=== PATIENT | male | born 1960 | race Caucasian/White ===

== ENCOUNTER 2017-02-04 08:04 | Outpatient (CLI) | payer MEDICARE, MEDICAID ==
[~2017-02-04] VITALS: Ht 188 cm; Wt 111.4 kg
--- NOTE | ~2017-02-04 | PUL ---
PATIENT'S NAME: TIFF VIGIL [facility] AGE: 56 Y [address] ROOM: [place] [address] LOCATION: GCAT ADMIT DATE: 02/04/2017 Pulmonary DISCHARGE DATE: 02/04/2017 FAMILY PHYSICIAN: Delicia Ferrell APRN ATTENDING PHYSICIAN: Breann Vizcarra NAME OF PROCEDURE: Bedside Pulmonary Function Test DATE OF PROCEDURE: February 04, 2017 TECH: LINDA Grier REASON FOR EXAM: Pre-surgical evaluation RESULTS: Spirometry does not demonstrate significant airflow obstruction. There is borderline improvement in the FEV1 post bronchodilator. MD MARIELA STORY/ /[id number] dtt: 02/18/17 0948 , Deonte Mena dtd: 02/08/17 1421
--- NOTE | ~2017-02-04 | ENPV ---
Carotid Duplex Study Demographics Patient Name TIFF VIGIL Date of Study 02/04/2017 Patient Number [id number] Gender Male Date of 1960 Age 56 Visit Number [id number] Height 74.02 Accession Number [id number] Weight 245.6 Referring Kingsley Ramires DO Interpreting Huber Aldana MD Physician Physician Physician Ordering Kingsley Ramires Hris Coordinator Physician DO Transport Driver Alia Woods, RT,RVT,RDCS Conclusions Summary Bilateral <50% stenosis of the ICA Procedure Type of Study: Cerebral:Carotid, Carotid Doppler Bilateral. Appropriate Use Criteria:9 Allergies - Insulin. Patient Status:Routine. Study Location:Inpatient Portable. Technical Quality:Adequate visualization. - Preliminary reported to:Rosey Finley APRN. Risk Factors - The patient's risk factor(s) include: renal failure , diabetes mellitus, obesity and arterial hypertension. - The patient's last creatinine was 2.4 mg/dl. Velocities are measured in cm/s ; Diameters are measured in cm Carotid Right Measurements Carotid Left Measurements + +--------+--------+ + + + +--------+- -------+ + + !Location !PSV !EDV !Angle !%Stenosis ! !Location !PSV !E DV !Angle !%Stenosis ! + +--------+--------+ + + + +--------+- -------+ + + !Prox CCA !107 ! !56 !1-39% ! !Prox CCA !84 !9 !60 !1-39% ! + +--------+--------+ + + + +--------+- -------+ + + !Dist CCA !55 ! !56 !1-39% ! !Dist CCA !62 !1 1 !60 !1-39% ! + +--------+--------+ + + + +--------+- -------+ + + !Prox ICA !34 !10 !60 !1-39% ! !Prox ICA !36 !1 3 !60 !1-39% ! + +--------+--------+ + + + +--------+- -------+ + + !Mid ICA !70 !21 !60 !1-39% ! !Mid ICA !61 !2 1 !60 !1-39% ! + +--------+--------+ + + + +--------+- -------+ + + !Dist ICA !84 !30 !60 !1-39% ! !Dist ICA !100 !3 2 !60 !1-39% ! + +--------+--------+ + + + +--------+- -------+ + + !Prox ECA !47 ! !14 ! ! !Prox ECA !74 ! !60 ! ! + +--------+--------+ + + + +--------+- -------+ + + !Vertebral !41 ! !60 ! ! !Vertebral !64 ! !60 ! ! + +--------+--------+ + + + +--------+- -------+ + + - There is antegrade vertebral flow noted on the right side. - There is antegrade verte bral flow noted on the left side. - Add'l Measurements:Subclavian PRV 177 cm/sICAPSV/CCAPSV - Add'l Measurements:Subcl jesse PRV 157 cm/sICAPSV/CCAPSV 0.79. 1.19.ICAEDV/CCAEDV 3.62. Signature dtt: NORIS ADAIR dtd: 02/04/17 1408 Physician Self Edit
--- NOTE | ~2017-02-04 | CATH ---
Cardiac Diagnostic + PCI Report Demographics Patient Name YARITZA Cool Gender Male Date of 1960 Age 56 year(s) Patient Number [id number] Date of Study 02/04/2017 Visit Number [id number] Room Number G63[address] [place] [id number] Ht 188 cm Wt 111.4 kg Referring Ghassan Nesbitt Primary Physician Physician PHILLY Will Performing [facility] Crain Secondary Physician Physician Diagnostic [facility] Crain Assisting Physician Physician Interventional [facility] Physician Special Machine Stitcher Physician Findings and Conclusions Diagnostic Findings and Conclusion Critical, heavily calcified diffuse mid LAD lesion 95% Moderate CAD in OM and ostial PLV branch Small upper branch of PLV has focal 90% stenosis Diagnostic Recommendations Attempt PCI of mLAD Limited diagnostic views for coronary angiogram, given eGFR in 20's. Interventional Findings and Conclusion s/p PTCA MID lad, the more mid to distal LAD lesion was not well visualized in the caudal views on diagnostic angiogram, however, upon wiring the LAD and when cranial images were reviewed, severe, calcific disease noted in the entire mid LAD, long diffuse lesion Great difficulty advancing balloon due to calcification Due to renal insufficiency and unavailability of atherectomy devices here, I will discuss with CTS for possible CABG. Interventional Recommendations I reviewed images with Dr. Wynn, plan is off pump, MOORE to LAD/diag. Pt has appointment on February [address] Wynn at [facility] clinic. Carotids and PFT's will be done prior to dc. asa 81 mgs daily, lipitor 20 mgs daily, LDL in 30's, sl ntg prn chest discomfort. continue bb. Patient will be discharged later today. Patient has been instructed to not lift anything more than 5 pounds for 1 week. Aggressive risk factor management. Aggressive medical therapy for coronary artery disease. Cardiac diet . Optimization of medical therapy as an outpatient. Thanks Dr. Wynn. Procedure Description The patient was brought to the diagnostic cardiac catheterization-EP laboratory in the fasting, non-sedated state. Informed consent was obtained in the written and verbal form after the risks and benefits were explained. The patient had no further questions and agreed to proceed. The planned puncture-incision site(s) were shaved and prepped with ChloraPrep and draped in the usual sterile manner. Conscious sedation, supplemental oxygen, and pain control medications were delivered by a registered nurse under physician guidance. Surface ECG rhythm, blood pressure measurement, and pulse oximetry were monitored throughout the procedure. Arterial access. The access site was infiltrated with lidocaine. The vessel was entered with the Seldinger technique. A sheath was advanced into the vessel and used for catheter placement. Selective left coronary angiography. A catheter was advanced into the left coronary vessel ostium under Fluoroscopic guidance. Contrast was injected by hand. Images were obtained in multiple projections. Selective right coronary angiography. A catheter was advanced into the right coronary vessel ostium under fluoroscopic guidance. Contrast was injected by hand. Images were obtained in multiple projections. Angioplasty: A guiding catheter was used to intubate the vessel. A 0.14 wire was used to cross the lesion. A balloon was positioned across the lesion and inflated. Post placement angiograms were performed. Left heart catheterization. A catheter was advanced across the aortic valve to the left ventricle under fluoroscopic guidance. Resting hemodynamics were obtained. Arterial artery hemostasis was achieved. The patient was transferred to a regular nursing floor via cart accompanied by a nurse. The patient left the laboratory in stable condition. Diagnostic Cath Status: Elective Interventional Cath Status: Urgent Procedure Procedure Type Diagnostic procedure:Angiography:, Coronary Angios w/[facility] PCI procedure:PTCA:, LAD The procedure was explained in detail to the patient. Risks, complications and alternative treatments were reviewed. Written consent was obtained. Medications Reviewed with Patient prior to Procedure. Angiographic Findings Dominance: Right Cardiac Arteries and Lesion Findings LMCA: Normal (0% Stenosis).wnl LAD: Abnormal. clacified prox mid-95% distal 90% Diag 30% Lesion on Mid LAD: Mid subsection.95% stenosis reduced to 95%. Pre procedure CAMRON III flow was noted. Post Procedure CAMRON III flow was present. The guidewire cross was successful.A good run off was present.The lesion was diagnosed as a high risk lesion.Culprit lesion. Devices used - Runthrough NS .014 x 180. Number of passes: 1. - Emerge Balloon 2.75 x 15. 1 inflation(s) to a max pressure of: 6 timothy. Lesion on Prox LAD: Proximal subsection.30% stenosis . Lesion on 1st Diag: Proximal subsection.30% stenosis . Lesion on Dist LAD: Distal subsection.90% stenosis . LCx: Abnormal.circ wnl OM 1 50% Lesion on 1st Ob Shaila: Proximal subsection.50% stenosis . RCA: Abnormal.mid 30% distal 30% PL 50% ostial small upper branch pl 90% PDA 20% Lesion on Mid RCA: Mid subsection.30% stenosis . Lesion on Dist RCA: Distal subsection.30% stenosis . Lesion on 1st RPL: Ostial.50% stenosis . Lesion on 2nd RPL: Proximal subsection.90% stenosis . Lesion on R PDA: Proximal subsection.20% stenosis . Coronary Tree Procedure Data Procedure Date Date: 02/04/2017Start: 10:10 AMEnd: 10:47 AM Entry Locations - Retrograde Percutaneous access was performed through the Right Radial artery (Primary location). A 6 Fr sheath was inserted. Hemostasis was successfully obtained using Mechanical Compression. Closure Comments: r band with 15 cc air deployed by Wale. Procedure Medications Order and Administration + + + + + !Time !Medication !Dosage !Route ! + + + + + !02/04/2017 10:08 !Fentanyl !50 mcg !I.V. ! !AM ! ! ! ! + + + + + !02/04/2017 10:08 !Versed !1 mg !I.V. ! !AM ! ! ! ! + + + + + !02/04/2017 10:14 !Radial Verapamil !2.5 mg !I.A. ! !AM ! ! ! ! + + + + + !02/04/2017 10:15 !Heparin (ACC_3) !5000 units !I.V. ! !AM ! ! ! ! + + + + + !02/04/2017 10:26 !Angiomax (Bivalirudin) !82.5 mg !I.V. bolus ! !AM !(ACC_5) ! ! ! + + + + + !02/04/2017 10:27 !Angiomax (Bivalirudin) !1.75 mg/kg/hr!I.V. drip ! !AM !(ACC_5) ! ! ! + + + + + !02/04/2017 10:42 !Angiomax (Bivalirudin) ! !I.V. drip ! !AM !(ACC_5) ! ! ! + + + + + Devices Used - A5 Fr. BS JR 4 Diag. Catheterwas used for:Right coronary angiography. - A5 Fr. BS JL 3.5 Diag. Catheterwas used for:Left coronary angiography. - A6 Fr. EBU 3.5 Guide Catheterwas used for:LAD Intervention. - A5 Fr. BS Angled Pigtail Diag. Catheterwas used for:LV Pressures. Contrast Material - Isovue 12593 ml Fluoroscopy Time: Diagnostic: 7:54 minutes. Total: 7:54 minutes. Fluoroscopy Dose: Diagnostic: 1253 mGy. Total: 1253 mGy. Estimated Blood Loss: 10 ml. Additional [facility] PCI Information PCI Indication:PCI for high risk Non-STEMI or unstable angina. Medical History Performed Procedures and Imaging Results - No [facility] stress or imaging studies were performed. Allergies - Insulin. Risk Factors The patient risk factors include:obesity, hypertension, diabetes mellitus, last creatinine: 2.4 mg/dl, creatinine clearance: 54.8 ml/min and renal failure. Admission Data Admission Date: 02/04/2017 Admission Time: 08:04 AM Admit Source: Other Insurance Payors: Medicare. Admission Medications + +------+------+ + + + + !Medication !Dosage!Times !Last !Last !Administered !Comments ! ! ! !Per !Delivery !Delivery ! ! ! ! ! !Day !Date !Time ! ! ! + +------+------+ + + + + !Beta ! ! ! ! !Yes ! ! !Susi ! ! ! ! ! ! ! !(any) ! ! ! ! ! ! ! + +------+------+ + + + + Clinical Evaluation Leading to Procedure - The patient's CAD presentation was assessed as: Symptom unlikely to be ischemic. - There were no anginal symptoms. Anti-anginal medications were prescribed during the past two weeks. The medications are: Beta Blockers and Ca channel Blockers. - The patient has been in a state of heart failure within the past two weeks. - The patient's heart failure status was assessed as NYHA Class II, with CHF symptoms of MARTINEZ. Hemodynamics Condition: Rest O2 Consumption: Estimated: 275.62Heart Rate: 64 bpm Pressures (mmHg) +-----+ + !Site !Pressure ! +-----+ + !AO !110/60 (83) ! +-----+ + !AO !109/66 (85) ! +-----+ + !LV !115/6 ,16 ! +-----+ + !LV !101/5 ,50 ! +-----+ + !AO !123/68 (91) ! +-----+ + !LV !101/5 ,34 ! +-----+ + Valve Gradients and Areas + +---------+---------+---------+ +---------+ + !Valve !Peak !Mean !Area !Index !Flow !Source ! + +---------+---------+---------+ +---------+ + !Aortic !0 !0 ! ! ! ! ! + +---------+---------+---------+ +---------+ + !Aortic !0 !0 ! ! ! ! ! + +---------+---------+---------+ +---------+ + Shunts Oxygen Values O2 Capacity 138.72 O2 Consumption 275.62 Signatures dtt: GILBERT MOORE dtd: 02/04/17 1010 Physician Self Edit
[~2017-02-04 08:04] MED LIST: CERTAVITE SR-A1 EACH PO; COLCHICINE0.6 M1 PO; COREG12.5 MG PO; NORVASC5 MG PO; PROBENECID-COL1 EACH PO; PROBENECID500 MG PO; ULORIC80 MG PO; VITAMIN D5000 UNIT PO
[2017-02-04 09:01] LABS: BASOPHIL % 0.3 %; EOSINOPHIL # 0.1 K/uL (0.0-0.5); EOSINOPHIL % 1.6 %; HEMOGLOBIN 10.2 g/dL (12.0-17.0); IMMATURE GRANULOCYTE # 0.1 K/uL (0.0-0.3); IMMATURE GRANULOCYTE % 1.6 %; LYMPHOCYTE # 1.2 K/uL (0.8-4.0); MCH 31.9 pg (27.0-34.0); MCHC 35.2 gm/dL (32.0-36.5); MCV 90.6 fl (83.0-98.0); MONOCYTE # 0.4 K/uL (0.0-1.0); MONOCYTE % 9.7 %; MPV 10.1 fl (9.4-12.4); NEUTROPHIL # (ANC) 2.1 K/uL (1.4-9.0); NEUTROPHIL % 54.8 %; NRBC % 0 /100WBC (0-0.00); PLATELET COUNT 98 K/uL (150-450); WBC 3.8 K/uL (4.0-11.0)
[2017-02-04 09:10] LABS: INR - (THERAPEUTIC) 1.08 (0.92-1.07); PROTIME 11.3 SECONDS (9.8-11.4); PTT 31 SECONDS (25-32)
[2017-02-04 09:17] LABS: ALBUMIN 4.2 gm/dL (3.5-5.0); ANION GAP 15.3 (10.0-19.0); CALCIUM 8.6 mg/dL (8.5-10.5); CREATININE 2.4 mg/dL (0.6-1.3); POTASSIUM 5.3 mMol/L (3.7-5.1); TOTAL BILIRUBIN 1.5 mg/dL (0.0-1.5); TOTAL PROTEIN 7.2 g/dL (6.0-8.4)
[2017-02-04] MEDS ORDERED: ASPIRIN LO-DOSE81 MG PO (12:01)
[2017-02-04] MEDS ORDERED: LIPITOR20 M1 PO (12:02)
[2017-02-04] MEDS ORDERED: NITROSTAT 0.40.4 MG SL (12:02)
== END 2017-02-04 15:47 | disposition disaster alternative care site (69) ==
LOC: GCAT 08:04 → GPCU 08:04 → GCAT 15:47
PROVIDERS: Internal Medicine Interventional Cardiology
PROC: 4A023N7 Measurement of Cardiac Sampling and Pressure, Left Heart, Percutaneous Approach (ICD-10-PCS; principal; 2017-02-04)
PROC: B216YZZ Fluoroscopy of Right and Left Heart using Other Contrast (ICD-10-PCS; 2017-02-04)
DX: Z01.818 Encounter for other preprocedural examination (principal); I25.10 Atherosclerotic heart disease of native coronary artery without angina pectoris; I65.23 Occlusion and stenosis of bilateral carotid arteries
CPT/HCPCS: C1725; C1769; C1887; J0583; J1644; J2001; J2250; J3010; J7030; J7060

== ENCOUNTER 2017-02-08 11:48 | Inpatient (IN) | payer MEDICARE, MEDICAID ==
[~2017-02-08] VITALS: Ht 180.3 cm; Wt 118.9 kg
--- NOTE | ~2017-02-08 | OR ---
PATIENT'S NAME: TIFF VERA [facility] AGE: 56 Y [address] ROOM: [place] [address] LOCATION: GPCU ADMIT DATE: 02/09/2017 OR/Procedure Report DISCHARGE DATE: FAMILY PHYSICIAN: MELANIE RUIZ APRN ATTENDING PHYSICIAN: Fransisco Wynn SURGEON: Fransisco Wynn DO CLIMATE CHANGE ANALYST: DATE OF PROCEDURE: 02/09/2017 PREOPERATIVE DIAGNOSES: 1. Multivessel coronary artery disease with failed attempt at LAD PTCI. 2. Chronic kidney disease, stage IV. 3. Obesity. 4. Diabetes. SECONDARY DIAGNOSIS: Chronic cognitive impairment. POSTOPERATIVE DIAGNOSES: 1. Multivessel coronary artery disease with failed attempt at LAD PTCI. 2. Chronic kidney disease, stage IV. 3. Obesity. 4. Diabetes. PROCEDURE PERFORMED: Coronary artery bypass grafting x2 performed in an off pump fashion with left internal mammary artery to the LAD and reverse saphenous vein graft to the diagonal. REFERRING PHYSICIAN: Breann Vizcarra MD. BRIEF HISTORY: Mr. Vera is a 56-year-old white male with the above-noted diagnosis. He has been brought to the operative suite today for revascularization. He was sterilely prepped and draped in the usual fashion. A sternal incision was made. The sternum was divided in midline with sternal saw. The edges were made hemostatic with Chelsey and electrocautery. Concurrently to this, the saphenous vein was harvested endoscopically from the lower extremity. Mammary retractor was placed, and the left internal mammary artery was identified and then harvested utilizing surgical clips and electrocautery. Prior to its division, the patient was fully heparinized. The mammary was then divided and prepared for bypass. The vein graft was then prepared for bypass. Mammary retractor was removed and off pump sternal retractor was placed. Three deep pericardial stitches were placed underneath the left ventricle and used to elevate the left ventricle to identify the LAD and the diagonal. This was done without difficulty or hemodynamic instability. The Maquet foot pad was placed first at the diagonal. We placed 2 retracted tapes to support the diagonal and then opened the diagonal artery PATIENT'S NAME: TIFF VERA [facility] AGE: 56 Y [address] ROOM: [place] [id number] [facility] ADMIT DATE: 02/09/2017 OR/Procedure Report DISCHARGE DATE: FAMILY PHYSICIAN: MELANIE RUIZ APRN ATTENDING PHYSICIAN: Fransisco Wynn placing the #2 shunt and then performed an end-to-side vein graft anastomosis with a 7-0 Prolene. With this completed, the shunt was removed and the anastomosis was secured. The vein back bled nicely and bulldog was placed on the graft. We then exchanged our foot pump and adjusted our pericardial sutures and then placed the foot pad on the LAD and performed the same procedure with the internal mammary artery. After the shunt was removed which was a 1.75, the anastomosis was secured. The bulldog was removed from the mammary. Good distal flow was noted as well as a hemostatic anastomosis. The foot pad was then removed and the heart lowered back in an anatomic position. We then utilized a 4.3 heartstring device and 6-0 Prolene to perform vein-to- aorta anastomosis and once this was completed, the vein graft was de-aired. Bulldogs removed and distal flow was given. Protamine was now given. Two atrial and 1 ventricular temporary pacemaking wires were placed. Three chest tubes, one left pleural, one posterior pericardial, and one anterior mediastinal were placed. Copious amounts of antibiotic-infused saline was used to irrigate the sternum and mediastinum. The sternum was then approximated with 5 ZipFix devices and soft tissue was closed in a layered fashion with 0 Vicryl and 4-0 Monocryl. A Prevena dressing was applied. Chest tubes were placed to suction. The patient was transferred to the intensive care unit in stable condition. DO MARINA LOONEY/chantalel /[id number] CC: PHILLY Noyola MD d: 02/14/17 1242 t: 02/14/17 1404, OPERATIVE SUMMARY
--- NOTE | ~2017-02-08 | DS ---
PATIENT'S NAME: TIFF VIGIL [facility] AGE: 56 Y [address] ROOM: [address] [place], [place] [address] LOCATION: GPCU ADMIT DATE: 02/09/2017 Discharge Summary DISCHARGE DATE: 02/16/2017 FAMILY PHYSICIAN: Delicia Ferrell APRN ATTENDING PHYSICIAN: Fransisco Roche HOSPITAL COURSE: The patient is a 56-year-old white male with multivessel coronary artery disease, who had recently undergone a heart catheterization with Dr. Vizcarra on February 04, 2017. He had a failed attempt at PTCI to the LAD and therefore required surgical intervention. He was scheduled for surgery on 02/09/[address] Roche. His procedure consisted of coronary artery bypass grafting x2, performed in an off-pump fashion with left internal mammary artery bypass to the LAD and reverse saphenous vein graft to the diagonal. The patient tolerated the surgery without complication. He transferred to the ICU following the case. When he returned from surgery, his postoperative labs indicated hyperkalemia. He was treated with Kayexalate and bicarb. His potassium stabilized. He was placed on a nitroglycerin drip to decrease his systolic blood pressures. He extubated without complication within a few hours thereafter. He was then started on oral antihypertensive medications and the nitroglycerin drip was able to be weaned off. On postoperative day #1, the patient transferred to the progressive care floor. He worked with Cardiac Rehab for reconditioning purposes. His chest tubes, pacemaking wires, and Coyle catheter were discontinued in the routine postoperative timeframe. For the most part, the patient's creatinine remained stable from his baseline, given his stage 4 kidney disease. He did well. His potassium stabilized after the initial increase postoperatively, and we had no further complications or required further intervention. The patient had no runs of postoperative atrial fibrillation. In planning for home, Care Management worked with the patient. He elected to have Home Health Care Services. He did not require a skilled stay. This was arranged. By 02/16/2017, the patient was found stable to discharge to home. DISCHARGE ORDERS: Include an ADA diet. Activity levels as per the open heart surgery discharge summary sheet, which require no pulling, pushing, or lifting anything heavier than 10 pounds until March 23, 2017. The patient was asked to work with Cardiac Rehab on an outpatient basis within the next 2 weeks from discharge. The patient will not require any dressing changes. We will schedule him in to see Dr. Roche and Dr. Roberts in 2 weeks on the same day. We will get lab and x-ray at that time. He is to see his primary care provider, Delicia Ferrell APRN, in 3 to 4 weeks. FINAL DIAGNOSES: Include coronary artery disease; diabetes mellitus, diet controlled; dyslipidemia; hypertension; myelodysplastic syndrome; chronic kidney disease, stage 4; and obesity. PATIENT'S NAME: TIFF VIGIL [facility] AGE: 56 Y [address] ROOM: [place] [address] LOCATION: GPCU ADMIT DATE: 02/09/2017 Discharge Summary DISCHARGE DATE: 02/16/2017 FAMILY PHYSICIAN: Delicia Ferrell APRN ATTENDING PHYSICIAN: Fransisco Roche DISCHARGE MEDICATIONS: Include, 1. Multivitamin 1 tablet daily. 2. Vitamin D 5000 units daily. 3. Coreg 18.5 mg b.i.d. 4. Uloric 80 mg daily. 5. Norvasc 5 mg b.i.d. 6. Colchicine 0.3 mg q.48 hours. 7. Aspirin 81 mg daily. 8. Nitrostat 0.4 mg sublingual p.r.n. chest pain. 9. Lipitor 20 mg at bedtime. 10. Levothyroxine 50 mcg in the a.m. 11. Amiodarone 200 mg twice a day. 12. Cozaar 25 mg daily. 13. K-Phos 2 tablets every other day. 14. Potassium chloride 20 mEq daily. 15. Edson 5/325 one to two every 4 to 6 hours as needed. 16. Bumex 2 mg daily. The patient will get his scheduled erythropoietin 60,000 units as scheduled in [place]. He did receive an injection while here in the hospital to keep with his stable course. The patient discharged in stable condition. NELDA HAIRSTON APRN FOR FRANSISCO ROCHE, DLQ/modl /[id number] d: 03/10/17 0637 t: 03/17/17 1440, DISCHARGE SUMMARY
--- NOTE | ~2017-02-08 | ENPV ---
Vascular Lower Extremity Vein Mapping and Lower Extremities DVT Study Procedure Demographics Patient Name TIFF VIGIL Date of Study 02/08/2017 Patient Number [id number] Gender Male Date of 1960 Age 56 Visit Number [id number] Height Weight Number Room Number BSA BMI Referring Kingsley Ramires DO Interpreting Huber Aldana MD Physician Ghassan Nesbitt APRN - Physician [place] Physician Ordering Kingsley Ramires Palm Gatherer Physician DO Skiver Heel Tap Rodolfo Hernandes, Jose Antonio Wray Conclusions Summary The right great saphenous vein was mapped an appears adequate for surgical use. The left great saphenous vein was mapped an appears adequate for surgical use. There is no evidence of deep or superficial venous thrombus in bilateral lower extremities. Procedure Type of Study: Veins:Lower Extremity Vein Mapping, Vein Mapping, Lower Extremities DVT Study, Venous Duplex Lower Extremity Bilateral. Additional Indications:Pre CABG Allergies - Insulin. Patient Status:Pending Surgery. Study Location:Vascular Lab. Technical Quality:Adequate visualization. Velocities are measured in cm/s ; Diameters are measured in cm Right Lower Extremities DVT Study Measurements Right 2D and Doppler Measurements + + + + +------+------+ + !Location !Visualized!Compressibility!Thrombosis!Signal!Reflux!Reflux ! ! ! ! ! ! ! !(sec) ! + + + + +------+------+ + !GSV Thigh !Yes !Yes !None !Phasic!No ! ! + + + + +------+------+ + !Common !Yes !Yes !None !Phasic!No ! ! !Femoral ! ! ! ! ! ! ! + + + + +------+------+ + !Prox !Yes !Yes !None !Phasic!No ! ! !Femoral ! ! ! ! ! ! ! + + + + +------+------+ + !Mid Femoral!Yes !Yes !None !Phasic!No ! ! + + + + +------+------+ + !Dist !Yes !Yes !None !Phasic!No ! ! !Femoral ! ! ! ! ! ! ! + + + + +------+------+ + !Popliteal !Yes !Yes !None !Phasic!No ! ! + + + + +------+------+ + !PTV !Yes !Yes !None ! ! ! ! + + + + +------+------+ + !Peroneal !Yes !Yes !None ! ! ! ! + + + + +------+------+ + Left Lower Extremities DVT Study Measurements Left 2D and Doppler Measurements + + + + +------+------+ + !Location !Visualized!Compressibility!Thrombosis!Signal!Reflux!Reflux ! ! ! ! ! ! ! !(sec) ! + + + + +------+------+ + !GSV Thigh !Yes !Yes !None !Phasic!No ! ! + + + + +------+------+ + !Common !Yes !Yes !None !Phasic!No ! ! !Femoral ! ! ! ! ! ! ! + + + + +------+------+ + !Prox !Yes !Yes !None !Phasic!No ! ! !Femoral ! ! ! ! ! ! ! + + + + +------+------+ + !Mid Femoral!Yes !Yes !None !Phasic!No ! ! + + + + +------+------+ + !Dist !Yes !Yes !None !Phasic!No ! ! !Femoral ! ! ! ! ! ! ! + + + + +------+------+ + !Popliteal !Yes !Yes !None !Phasic!No ! ! + + + + +------+------+ + !PTV !Yes !Yes !None ! ! ! ! + + + + +------+------+ + !Peroneal !Yes !Yes !None ! ! ! ! + + + + +------+------+ + Velocities are measured in cm/s ; Diameters are measured in cm + ++--------++--------+ !Superficial - Great Saphenous Vein !!Right !!Left ! + ++--------++--------+ !Location !!Diameter!!Diameter! + ++--------++--------+ !Sapheno Femoral Junction !!0.54 !!0.78 ! + ++--------++--------+ !GSV High Thigh !!0.78 !!0.29 ! + ++--------++--------+ !GSV Mid Thigh !!0.57 !!0.32 ! + ++--------++--------+ !GSV Low Thigh !!0.39 !!0.27 ! + ++--------++--------+ !GSV Knee !!0.26 !!0.33 ! + ++--------++--------+ !GSV High Calf !!0.37 !!0.32 ! + ++--------++--------+ !GSV Mid Calf !!0.33 !!0.16 ! + ++--------++--------+ !GSV Low Calf !!0.23 !!0.24 ! + ++--------++--------+ - Number of vein branches on the right side:1 above knee and 1 below knee. - Number of vein branches on the left side:1 below knee. Signature dtt: NORIS ADAIR dtginette: 02/08/17 1324 Physician Self Edit
--- NOTE | ~2017-02-08 | OR ---
PATIENT'S NAME: EDWIN VERA [facility] AGE: 56 Y [address] ROOM: [address] [address] LOCATION: GICU ADMIT DATE: 02/09/2017 OR/Procedure Report DISCHARGE DATE: FAMILY PHYSICIAN: MELANIE RUIZ APRN ATTENDING PHYSICIAN: Fransisco Wynn SURGEON: Garry Feldman MD SHOT BLAST EQUIPMENT OPERATOR: DATE OF PROCEDURE: 02/09/2017 PROCEDURE PERFORMED: The following lines were placed during the patient's off- pump coronary artery bypass grafting or CABG. INDICATIONS: Edwin Vera is a 56-year-old gentleman with several health problems. He is developmentally delayed individual with a history of type 2 diabetes. He has chronic renal failure. 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 He also has chronically high potassium, was 6 at the time of arrival this morning, this was repeated and was found to be 5.7 in a subsequent sample. This was all known beforehand and was discussed with Dr. Wynn and we felt it was safe to proceed given the fact that his renal function had actually improved from his heart cath. A detailed discussion of risks and benefits was undertaken with the patient insofar as he could understand in the preop holding area. Questions were answered. At that point, procedure #[address], which was placement of arterial line. PROCEDURE #1: The patient had been attempted to cath in both arms. Therefore, I selected the right one as it had a little bit straighter course of the artery and little better pulse. Skin was prepped approximately 3 inches proximal to the wrist crease and topicalized of the radial artery. A 20-gauge arrow art line kit was inserted through the numb spot into the radial artery, this occurred on the first pass. Bright red arterial blood was noted in the flash chamber. The wire threaded without difficulty and the catheter was then threaded off the wire into the artery and affixed a sterile saline- filled tubing, this was flushed with heparinized saline and affixed to the patient's wrist using sterile Tegaderm and tape. With this out of the way, the path of the internal jugular vein was mapped using ultrasound in the patient's right neck. At that point, he was taken to OR #4 where he underwent uneventful induction of general anesthesia and intubation. With his airway controlled, procedure #[address], which was placement of central line. PROCEDURE #2: The airway under control and his head was turned to the left and his right neck sterilely prepped. I gloved and gowned and washed hands during this time. I returned and placed a maximal sterile barrier per policy. I cannulated the vein using an 18-gauge needle inserted at the point previously marked. In preop holding, contacting dark venous blood on the PATIENT'S NAME: EDWIN VERA [facility] AGE: 56 Y [address] ROOM: [address] [place] [id number] LOCATION: GICU ADMIT DATE: 02/09/2017 OR/Procedure Report DISCHARGE DATE: FAMILY PHYSICIAN: MELANIE RUIZ APRN ATTENDING PHYSICIAN: Fransisco Wynn first pass. The wire threaded without difficulty or ectopy. A small skin gennaro was made and a 9-Burundian 10 cm introducer was passed without difficulty over the wire. This was threaded into its hub. Wire was withdrawn and the introducer was sutured in place with 2-0 silk. The obturator lumen was filled with 3-lumen SLIC catheter and the entire assemblage was covered with sterile Tegaderm. At that point, the patient's head was returned to the midline. PROCEDURE #3: Placement of SHALA probe. SHALA was used for ongoing management of the patient and to that end his stomach was suctioned with an 18-Burundian nasogastric tube. This was withdrawn and the SHALA probe guided into the posterior pharynx. Pictures obtained were of good quality and adequate for interpretation. The patient had normal left and right ventricular systolic function. Valvular exam revealed trace amounts of regurgitation for mitral and aortic valve. I was unable to get a good picture of the tricuspid valve. The aorta itself did not look to be emphatic or have any plaquing available. Several places of discrete wall thickening were noted, but these were not elevated beyond 1 mm. FINDINGS: Post bypass, essentially no change to this exam. Thank you very much for allowing me to participate in Mr. Vera's care. If you have any questions regarding any of these procedures, please do not hesitate to call. Sincerely, GARRY MD CHARLENE FALL/modl /[id number] d: 02/09/17 1938 t: 02/14/17 1734, OPERATIVE SUMMARY
--- NOTE | ~2017-02-08 | PUL ---
PATIENT'S NAME: [facility]FF [facility] AGE: 56 Y [address] ROOM: [address] [address] LOCATION: GPCU ADMIT DATE: 02/09/2017 Pulmonary DISCHARGE DATE: 02/16/2017 FAMILY PHYSICIAN: Delicia Ferrell APRN ATTENDING PHYSICIAN: Fransisco Wynn NAME OF PROCEDURE: Overnight Pulse Oximetry DATE OF PROCEDURE: February 14 to February 15, 2017 REASON FOR EXAM: Nocturnal hypoxemia RESULTS: The test was performed on room air, and then it was changed to 1 liter/minute oxygen. The recording time was 8 hours, 46 minutes, and 16 seconds. Highest pulse noted was 87 per minute, lowest pulse was 67 per minute, and mean pulse was 79 per minute. The highest SpO2 was 97%, the lowest was 76%, and mean was 91.6%. The desaturation event index was 2.4. The total cumulative time with saturation below 88% was more than 6 minutes. PHYSICIAN INTERPRETATION: The patient has evidence of significant nocturnal hypoxia and would qualify for supplemental oxygen as per Medicare criteria. A sleep study would be recommended. MD DIONE VILLALBA/mp /[id number] dtt: 02/17/17 1636 , BERTO WATKINS dtd: 02/17/17 0939
[~2017-02-08 11:48] MED LIST changes: +ASPIRIN LO-DOSE81 MG PO; +LIPITOR20 M1 PO; +NITROSTAT 0.40.4 MG SL
[2017-02-08 12:27] LABS: HEMATOCRIT 29.3 % (37.0-53.0); HEMOGLOBIN 9.9 g/dL (12.0-17.0); MCH 31.5 pg (27.0-34.0); MCHC 33.8 gm/dL (32.0-36.5); MCV 93.3 fl (83.0-98.0); MPV 9.8 fl (9.4-12.4); RBC 3.14 M/uL (4.00-6.00); WBC 3.3 K/uL (4.0-11.0)
[2017-02-08 12:37] LABS: PROTIME 10.5 SECONDS (9.8-11.4)
[2017-02-08 13:03] LABS: CALCIUM 8.8 mg/dL (8.5-10.5); CREATININE 2.2 mg/dL (0.6-1.3); TOTAL PROTEIN 7.1 g/dL (6.0-8.4)
[2017-02-08 13:05] LABS: TOTAL BILIRUBIN 0.9 mg/dL (0.0-1.5)
[2017-02-08] MEDS ORDERED: LEVOTHROID(SYN75 MCG PO (15:20)
[2017-02-08 15:30] LABS: BILIRUBIN URINE NEGATIVE (NEGATIVE); BLOOD URINE NEGATIVE /UL (NEGATIVE); COLOR URINE YELLOW (YELLOW); GLUCOSE URINE 100 mg/dL (NEGATIVE); KETONE URINE NEGATIVE (NEGATIVE); LEUKOCYTES URINE NEGATIVE /UL (NEGATIVE); NITRITE URINE NEGATIVE (NEGATIVE); PROTEIN URINE 30 mg/dL (NEGATIVE); SPEC GRAVITY URINE 1.015 (1.003-1.035); TURBIDITY URINE CLEAR (CLEAR); UROBILINOGEN URINE NORMAL (NORMAL)
[2017-02-08 15:40] LABS: BACTERIA URINE NEGATIVE (NEGATIVE); EPITHELIAL URINE 0-2 #/HPF (NEGATIVE); RBC URINE NEGATIVE #/HPF (NEGATIVE); WBC URINE RARE #/HPF (NEGATIVE)
[2017-02-08 16:00] LABS: PCO2 29 mmHg (35-45); PO2 93 mmHg (80-90)
[2017-02-09 10:52] LABS: HEMATOCRIT 28.7 % (37.0-53.0); MCH 31.8 pg (27.0-34.0); MCHC 33.8 gm/dL (32.0-36.5); MCV 94.1 fl (83.0-98.0); MPV 9.4 fl (9.4-12.4); PLATELET COUNT 87 K/uL (150-450); RBC 3.05 M/uL (4.00-6.00); RDW-CV 15.9 % (11.9-14.6); WBC 8.2 K/uL (4.0-11.0)
[2017-02-09 10:53] LABS: HEMOGLOBIN 9.7 g/dL (12.0-17.0)
[2017-02-09 11:02] LABS: INR - (THERAPEUTIC) 1.14 (0.92-1.07); PTT 31 SECONDS (25-32)
[2017-02-09 11:13] LABS: ALPHA ANGLE 70 degrees; CLOT FORMATION TIME 109 seconds; CLOTTING TIME 228 seconds; CLOTTING TIME 57 seconds (43-82); MAXIMUM CLOT FIRMNESS 52 mm; MAXIMUM LYSIS 0 %
[2017-02-09 11:35] LABS: PCO2 47 mmHg (35-45); PO2 115 mmHg (80-90)
[2017-02-09 11:40] LABS: CREATININE 2.2 mg/dL (0.6-1.3)
[2017-02-09 11:47] LABS: ALPHA ANGLE 67 degrees (70-81); ALPHA ANGLE 70 degrees; CLOT FORMATION TIME 114 seconds; CLOTTING TIME 176 seconds; CLOTTING TIME 46 seconds (43-82); MAXIMUM CLOT FIRMNESS 51 mm (51-72); MAXIMUM CLOT FIRMNESS 53 mm; MAXIMUM LYSIS 0 %
[2017-02-09 11:54] LABS: ANION GAP 13.8 (10.0-19.0); CALCIUM 7.4 mg/dL (8.5-10.5); POTASSIUM 6.8 mMol/L (3.7-5.1)
[2017-02-09 11:55] LABS: BICARBONATE 18.6 mmol/L (18.0-23.0); PCO2 40 mmHg (35-45); PO2 319 mmHg (80-90); SODIUM 139 mEq/L (135-145)
[2017-02-09 11:56] LABS: POTASSIUM 6.7 mEq/L (3.7-5.1)
[2017-02-09 11:57] LABS: BICARBONATE 17.9 mmol/L (18.0-23.0); PCO2 39 mmHg (35-45); PO2 377 mmHg (80-90); POTASSIUM 6.9 mEq/L (3.7-5.1); SODIUM 139 mEq/L (135-145)
[2017-02-09 11:58] LABS: BICARBONATE 17.7 mmol/L (18.0-23.0); PCO2 40 mmHg (35-45); PO2 431 mmHg (80-90); SODIUM 139 mEq/L (135-145)
[2017-02-09 11:59] LABS: POTASSIUM 7.1 mEq/L (3.7-5.1)
[2017-02-09 11:59] LABS: BICARBONATE 17.2 mmol/L (18.0-23.0); PCO2 39 mmHg (35-45); PO2 286 mmHg (80-90)
[2017-02-09 12:00] LABS: POTASSIUM 7.1 mEq/L (3.7-5.1); SODIUM 138 mEq/L (135-145)
[2017-02-09 13:46] LABS: BICARBONATE 20.2 mmol/L (18.0-23.0); PCO2 42 mmHg (35-45)
[2017-02-09 13:47] LABS: PO2 88 mmHg (80-90)
[2017-02-10 04:30] LABS: PCO2 41 mmHg (35-45)
[2017-02-10 04:31] LABS: BICARBONATE 24.3 mmol/L (18.0-23.0); PO2 67 mmHg (80-90)
[2017-02-10 04:43] LABS: ANION GAP 12.6 (10.0-19.0); CALCIUM 8.3 mg/dL (8.5-10.5); CREATININE 2.4 mg/dL (0.6-1.3); POTASSIUM 4.6 mMol/L (3.7-5.1)
[2017-02-10 05:02] LABS: HEMATOCRIT 28.7 % (37.0-53.0); HEMOGLOBIN 9.8 g/dL (12.0-17.0); MCH 31.2 pg (27.0-34.0); MCHC 34.1 gm/dL (32.0-36.5); MCV 91.4 fl (83.0-98.0); MPV 9.4 fl (9.4-12.4); RBC 3.14 M/uL (4.00-6.00); RDW-CV 15.9 % (11.9-14.6); WBC 6.1 K/uL (4.0-11.0)
[2017-02-11 09:43] LABS: ALBUMIN 2.8 gm/dL (3.5-5.0); ANION GAP 12.3 (10.0-19.0); CREATININE 2.6 mg/dL (0.6-1.3); PHOSPHORUS 4.1 mg/dL (2.5-4.9); POTASSIUM 4.3 mMol/L (3.7-5.1)
[2017-02-12 03:48] LABS: ALBUMIN 2.6 gm/dL (3.5-5.0); ANION GAP 12.2 (10.0-19.0); CALCIUM 7.5 mg/dL (8.5-10.5); CREATININE 2.7 mg/dL (0.6-1.3); PHOSPHORUS 3.5 mg/dL (2.5-4.9); POTASSIUM 4.2 mMol/L (3.7-5.1)
[2017-02-13 04:32] LABS: BASOPHIL % 0.3 %; EOSINOPHIL # 0.1 K/uL (0.0-0.5); EOSINOPHIL % 1.7 %; HEMATOCRIT 24.1 % (37.0-53.0); HEMOGLOBIN 8.1 g/dL (12.0-17.0); IMMATURE GRANULOCYTE % 0.7 %; LYMPHOCYTE # 0.8 K/uL (0.8-4.0); LYMPHOCYTE % 25.3 %; MCH 31.9 pg (27.0-34.0); MCHC 33.6 gm/dL (32.0-36.5); MCV 94.9 fl (83.0-98.0); MONOCYTE # 0.3 K/uL (0.0-1.0); MONOCYTE % 10.1 %; MPV 9.9 fl (9.4-12.4); NEUTROPHIL # (ANC) 1.8 K/uL (1.4-9.0); NEUTROPHIL % 61.9 %; NRBC % 0 /100WBC (0-0.00); PLATELET COUNT 78 K/uL (150-450); RBC 2.54 M/uL (4.00-6.00); RDW-CV 15.9 % (11.9-14.6)
[2017-02-13 04:47] LABS: ALBUMIN 2.7 gm/dL (3.5-5.0); ANION GAP 11.8 (10.0-19.0); CALCIUM 7.7 mg/dL (8.5-10.5); CREATININE 2.5 mg/dL (0.6-1.3); POTASSIUM 3.8 mMol/L (3.7-5.1)
[2017-02-13 04:52] LABS: PHOSPHORUS 1.9 mg/dL (2.5-4.9)
[2017-02-14 05:12] LABS: ALBUMIN 2.6 gm/dL (3.5-5.0); ANION GAP 9.9 (10.0-19.0); CALCIUM 7.8 mg/dL (8.5-10.5); CREATININE 2.1 mg/dL (0.6-1.3); POTASSIUM 3.9 mMol/L (3.7-5.1)
[2017-02-14 05:14] LABS: PHOSPHORUS 1.6 mg/dL (2.5-4.9)
[2017-02-15 05:38] LABS: ALBUMIN 2.8 gm/dL (3.5-5.0); CREATININE 2.1 mg/dL (0.6-1.3); PHOSPHORUS 2.5 mg/dL (2.5-4.9)
[2017-02-16 04:14] LABS: BASOPHIL % 0.2 %; EOSINOPHIL # 0.1 K/uL (0.0-0.5); EOSINOPHIL % 2.5 %; HEMATOCRIT 23.8 % (37.0-53.0); HEMOGLOBIN 8.2 g/dL (12.0-17.0); IMMATURE GRANULOCYTE # 0.1 K/uL (0.0-0.3); IMMATURE GRANULOCYTE % 1.5 %; LYMPHOCYTE # 1.1 K/uL (0.8-4.0); LYMPHOCYTE % 27.5 %; MCH 31.5 pg (27.0-34.0); MCHC 34.5 gm/dL (32.0-36.5); MCV 91.5 fl (83.0-98.0); MONOCYTE # 0.5 K/uL (0.0-1.0); MPV 9.9 fl (9.4-12.4); NEUTROPHIL # (ANC) 2.3 K/uL (1.4-9.0); NEUTROPHIL % 56.3 %; NRBC % 0 /100WBC (0-0.00); RDW-CV 15.8 % (11.9-14.6); WBC 4.1 K/uL (4.0-11.0)
[2017-02-16 04:15] LABS: PLATELET COUNT 97 K/uL (150-450)
[2017-02-16 04:27] LABS: ALBUMIN 2.8 gm/dL (3.5-5.0); CALCIUM 8.1 mg/dL (8.5-10.5); CREATININE 2.2 mg/dL (0.6-1.3); PHOSPHORUS 3.3 mg/dL (2.5-4.9)
[2017-02-16] MEDS ORDERED: CORDARONE,PACE200 MG PO (09:31)
[2017-02-16] MEDS ORDERED: COZAAR25 MG PO (09:42)
[2017-02-16] MEDS ORDERED: K-PHOS ORIGINA500 MG PO (09:47)
[2017-02-16] MEDS ORDERED: K-TAB ER20 MEQ PO (09:50)
[2017-02-16] MEDS ORDERED: NORCO 5-325 TA1 EACH PO (09:52)
[2017-02-16] MEDS ORDERED: BUMEX1 MG PO (09:54)
== END 2017-02-16 14:30 | disposition disaster alternative care site (69) | DRG 236 ==
LOC: GOPD 11:48 → GPCU 02-09 05:06 → GICU 02-09 06:18 → GPCU 02-10 19:10
PROVIDERS: ADMIT Thoracic Surgery (Cardiothoracic Vascular Surgery)
DX: I25.10 Atherosclerotic heart disease of native coronary artery without angina pectoris (principal); I13.2 Hypertensive heart and chronic kidney disease with heart failure and with stage 5 chronic kidney disease, or end stage renal disease; N17.9 Acute kidney failure, unspecified; E11.22 Type 2 diabetes mellitus with diabetic chronic kidney disease; I50.32 Chronic diastolic (congestive) heart failure; N18.5 Chronic kidney disease, stage 5; D46.9 Myelodysplastic syndrome, unspecified; E78.5 Hyperlipidemia, unspecified; E87.5 Hyperkalemia; Z79.4 Long term (current) use of insulin; D63.8 Anemia in other chronic diseases classified elsewhere; F32.9 Major depressive disorder, single episode, unspecified; E66.01 Morbid (severe) obesity due to excess calories; Z68.36 Body mass index [BMI] 36.0-36.9, adult
CPT/HCPCS: C1769; J0282; J0690; J0885; J1250; J1644; J1650; J1940; J2250; J2270; J2405; J2440; J2720; J3475; J3480; J3490; J7040; J7050; J7060; J7121; P9040; P9045

== ENCOUNTER → 2017-03-03 | Outpatient (CLI) | payer MEDICARE, MEDICAID ==
[~2017-03-03] MED LIST changes: +BUMEX1 MG PO; +CORDARONE,PACE200 MG PO; +COZAAR25 MG PO; +K-PHOS ORIGINA500 MG PO; +K-TAB ER20 MEQ PO; +LEVOTHROID(SYN75 MCG PO; +NORCO 5-325 TA1 EACH PO
== END ==
LOC: LGSMG 13:43
DX: I12.9 Hypertensive chronic kidney disease with stage 1 through stage 4 chronic kidney disease, or unspecified chronic kidney disease (principal); E11.22 Type 2 diabetes mellitus with diabetic chronic kidney disease; N18.9 Chronic kidney disease, unspecified